=== PATIENT | female | born 1965 | race Caucasian/White ===

== ENCOUNTER → 2019-04-04 | Day surgery (SDC) | payer BC ==
[2019-03-29 14:42] VITALS: BMI 36.6
[~2019-04-04] MED LIST: MIDAZOLAM HCL 2 MG/2 ML SINGLE DOSE VIAL ONE; PROPOFOL 20 ML ONE
== END | disposition home or self-care (01) ==
LOC: FASUSAT 07:48 → UNDOADMIN 07:48 → FM/S 07:48 → EDSTATUS 08:00
PROVIDERS: ATTEND Orthopaedic Surgery Orthopaedic Surgery of the Spine
PROC: 0SRB039 Replacement of Left Hip Joint with Ceramic Synthetic Substitute, Cemented, Open Approach (ICD-10-PCS; principal; 2019-04-04)
DX: M16.12 Unilateral primary osteoarthritis, left hip (principal); Z53.09 Procedure and treatment not carried out because of other contraindication